=== PATIENT | male | born 1980 | race Caucasian/White ===

== ENCOUNTER 2024-09-19 09:20 | Emergency (ER) | payer BC, SELFPAY ==
[2024-09-19 09:24] VITALS: BP 145/92; PULSE 54; RESP 16; TEMP 35.1; O2SAT 97
[2024-09-19 09:27] VITALS: BP 145/92; PULSE 54; RESP 16; TEMP 35.1; O2SAT 97
--- NOTE | 2024-09-19 09:58 | ED.GENADUL_ITS ---
Discharge Plan Disposition Patient Disposition: Home Discharge Details Clinical Impression: Right inguinal hernia Primary Care Provider: Unknown,Unknown ED Provider: Urban Sanchez Home Meds and New Rx's Prescriptions: No Action No Known Home Meds Discharge Instructions Additional Instructions: You were seen in the emergency department for your right inguinal hernia. As we discussed if you develop any worsening pain any nausea vomiting any skin changes cannot eat or drink or if you have any other concerns please return to the emergency department. Otherwise the general surgery clinic will call you to arrange for follow-up. Referrals: [facility] [Provider Group] HPI General Date/Time Provider Initiated Documentation: 09/19/24 09:58 . HPI Narrative: MDM This is a quite well-appearing afebrile and not tachycardic 44-year-old male with clinical right inguinal hernia. I spoke with Dr. Henning from general surgery who had evaluated the patient. Given the patient arrived to the emergency department we obtained a courtesy CT scan given involvement with general surgery. He had no signs of incarceration or strangulation and no signs of small bowel obstruction. No testicular pain to suggest torsion. He has no rash to his abdomen to suggest zoster. No right lower quadrant tenderness to suggest appendicitis. No diarrhea to suggest diverticulitis. No falls to suggest increased risk for intra-abdominal trauma. Patient has a right inguinal hernia for which he will benefit from outpatient surgical follow-up. I have asked health rn unit manager Razia to place patient on the list for follow-up in the general surgery clinic. Patient and I discussed that he should return to the ED if he developed any nausea, vomiting, skin changes, worsening pain, fevers, or had any other concerns. HPI This is a patient with a history of a previous hernia repair presenting with a new hernia. The patient reports noticing a bulge in his right groin area approximately a week ago. He describes the sensation as if there is a tear that he can feel with his fingers, estimating the size of the tear to be about an inch or an inch and a half. He is able to manually push the bulge back in, but it re-emerges after a brief moment. He has not sought medical attention from his primary care physician for this issue. When he attempted to schedule an appointment this morning, he was advised to visit the ER instead. He recalls engaging in heavy lifting activities such as moving boulders and digging but cannot pinpoint the exact moment when the hernia might have occurred. He also mentions that he needs to support the area when coughing. The patient reports no nausea, vomiting, or burning sensation during urination. His urinary function is normal, and he has not experienced any changes in bowel habits. His last bowel movement was yesterday afternoon. He has no history of surgery in the inguinal GCS 15. Area, but he did undergo a hernia repair surgery in his upper stomach several years ago. The patient smokes 1 pack per day. PAST SURGICAL HISTORY: Hernia repair surgery in the upper stomach several years ago. Exam General: Well-appearing in no acute distress speaking in complete sentences. Head: Normocephalic, atraumatic. Eye: Extraocular eye movements intact. No conjunctival injection. No scleral icterus. Ear, nose, mouth, throat: Grossly normal inspection. Normal voice, handling secretions normally. Neck: Trachea midline. Cardiovascular: Well-perfused distal extremities. Respiratory: Nonlabored respiration. Gastrointestinal: Nondistended abdomen. Soft. Nontender abdomen. Right inguinal hernia. No signs of incarceration. No signs of strangulation. Musculoskeletal: No edema. Moving all 4 extremities spontaneously. Skin: Normal for age and race, grossly normal temperature and turgor. No acute rash. Neurologic: Alert and appropriate, no apparent acute deficits. GCS 15. Psychiatric: Mood and manner are appropriate. Grooming and personal hygiene are appropriate. Related Data Home Medications ?Medication ?Instructions ?Recorded ?Confirmed Unknown [No Known Home Meds] 09/19/24 0 09/19/24 Allergies Allergy/AdvReac Type Severity Reaction Status Date / Time No Known Allergies Allergy Unverified 09/19/24 09:28 General Stated Complaint: Abd Prob BILL: 3 Course Vital Signs Vital signs: Vital Signs Temperature 35.1 C L 09/19/24 09:24 Pulse 54 L 09/19/24 09:24 Respiratory Rate 16 09/19/24 09:24 Blood Pressure 145/92 H 09/19/24 09:24 Pulse Oximetry 97 09/19/24 09:24 Temperature 35.1 C L 09/19/24 09:27 Temperature Source Tympanic 09/19/24 09:27 Pulse 54 L 09/19/24 09:27 Respiratory Rate 16 09/19/24 09:27 Blood Pressure 145/92 H 09/19/24 09:27 Pulse Oximetry 97 09/19/24 09:27 PFSH All Active Problems (Updated 09/19/24 @ 14:03 by Urban Sanchez MD) Smoker (Acute) Right inguinal hernia (Acute) Surgical History (Updated 09/19/24 @ 14:32 by Austin Henning DO) H/O ventral hernia repair Social History Smoking/Tobacco Use Status: Current every day Tobacco Type: cigarettes Smoking risk assessment performed?: Yes Alcohol Intake: current Alcohol Intake frequency: a few times a week Drug use: Daily Substance use type: marijuana Do you feel safe at home: Yes Do you feel safe in your relationship?: Yes PAWSS Have you Been Recently Intoxicated or Drunk Within the Last 30 days?: No Have you Ever Experienced Previous Episodes of Alcohol Withdrawal?: No Have you ever Experienced Withdrawal Seizures?: No Have you ever Experienced Delirium Tremens(DT)s?: No Have you ever undergone Alcohol Rehabilitation Treatment (i.e, inpt ot outpatient treatment programs)?: No Have you ever Experienced Blackouts?: No Have you ever Combined Alcohol with other Downers within the last 90 days?: No Have you ever Combined Alcohol with any other Substance of Abuse during the last 90 days?: No Positive Blood Alcohol level on Presentation? [PCS.BAL]: No Evidence of Increased Autonomic Activity (i.e. HR>120, tremor, sweating, agitation, nausea)?: No Result: 0
--- NOTE | 2024-09-19 10:45 | DI.CT_ITS ---
Exam(s) CT ABDOMEN PELVIS W EXAM: CT ABDOMEN PELVIS W CLINICAL HISTORY: Right inguinal hernia. TECHNIQUE: Imaging Protocol: Axial computed tomography images with coronal and sagittal reformatted images were created and reviewed CONTRAST MATERIAL: Intravenous: Omnipaque-350 75cc Oral: None COMPARISON: No exams were available for comparison FINDINGS: VISUALIZED LUNG BASES: No nodules nor pleural effusions evident. ABDOMEN: There is no ascites. LIVER: There is a small focal hypodensity in the medial aspect of the right hepatic lobe measuring 5 mm. This is probably a benign cyst or hemangioma. Mild hepatic steatosis noted. There are no dilated intrahepatic ducts. GALLBLADDER/BILIARY: No obvious gallbladder pathology. CBD is not dilated. PANCREAS: No evidence of pancreatic mass nor dilatation of the pancreatic duct. SPLEEN: Spleen size upper normal. Splenic and portal veins are patent. ADRENALS: There are no significant adrenal masses. KIDNEYS:No cysts evident. No solid renal masses. No calculi nor hydronephrosis.. ABDOMINAL AORTA: Abdominal aorta is not enlarged. LYMPH NODES:There is no retroperitoneal nor paraaortic adenopathy. ABDOMINAL WALL: No evidence of significant anterior abdominal wall nor inguinal hernia. GI: There is no evidence of bowel obstruction, free air, nor abscess. PELVIS: GI: No evidence of acute appendicitis.No evidence of sigmoid diverticulitis. INGUINAL: There is mild streaking in the right inguinal canal. No abnormal fluid collection. There are no bowel loops within the inguinal canal. LYMPH NODES: There is no intrapelvic nor inguinal adenopathy. REPRODUCTIVE: Age-appropriate URINARY BLADDER: No calculi nor obvious masses evident OSSEOUS: No fractures. No significant osseous lesions. IMPRESSION: 1. There is mild streaking in and around the right inguinal canal. There is no bowel loop nor prominent fat within the inguinal canal and there is no evidence of abscess. RADIATION DOSE DELIVERED: 501.09mGy.cm Total DLP DATA REPOSITORY: All CT scans at this facility are submitted to the National Radiology Data Registry (NRDR) Dose Index Registry (DIR) with the [employer] (ACR). RADIATION OPTIMIZATION: All CT scans at this facility use at least one of these dose optimization techniques: automated exposure control; mA and/or kV adjustment per patient size (includes targeted exams where dose is matched to clinical indication); or iterative reconstruction.
[2024-09-19 10:53] VITALS: BP 132/58; PULSE 48; RESP 18; O2SAT 98
[2024-09-19 11:25] LABS: Abs Immature Grans 0.04 10^3/uL (0.0-0.06); HCT 50.9 % (40.0-50.0); HGB 17.8 g/dL (13.5-17.5); Immature Grans % 0.5 %; MCH 31.6 pg (27.0-33.0); MCHC 35.0 % (32.0-36.0); MCV 90 fL (80-95); MPV 12.6 fL (8.0-11.0); Platelet Count 138 10^3/uL (130-400); RBC 5.63 10^6/uL (4.36-5.78); RDW 12.7 % (11.8-14.1); RDW-SD 42.1 fL; WBC 8.22 10^3/uL (4.4-10.8)
[2024-09-19] MEDS: Omnipaque 350 MG/ML 500 ML BTL-Imaging package 75 ML IJ (11:33)
[2024-09-19] MEDS: Normal Saline - Diluent 50 ML VIAL IJ (11:35)
[2024-09-19 12:25] VITALS: BP 110/80; PULSE 49; RESP 16; O2SAT 97
[2024-09-19 13:12] LABS: Anion Gap 8.0 mmol/L (3-11); BUN 13 mg/dL (7-18); CO2 27.0 mmol/L (21.0-32.0); Calcium 8.9 mg/dL (8.5-10.1); Chloride 105 mmol/L (98-107); Estimated GFR 111.22 (mL/min/1.73m2); Glucose 98 mg/dL (74-106); Potassium 4.1 mmol/L (3.5-5.1); Sodium 140 mmol/L (136-145)
--- NOTE | 2024-09-19 13:28 | W.SURGCON ---
Date of service: 09/19/24 Time of Service: 13:28 Assessment and Plan Assessment and plan (1) Right inguinal hernia: Status: Acute Assessment and plan: 44-year-old male with right groin pain and bulge. CT scan and exam consistent with right inguinal hernia containing fat, likely direct. - Discussed anatomy and physiology of hernia and inguinal canal - Discussed hernia belt for symptom management - Discussed role of repetitive strain causing initial hernia and risk for recurrent hernia after surgical repair. - Briefly discussed surgical repair options - No urgent surgical issues. Patient can discharge and follow-up in clinic - Return precautions discussed All discussions occurred with patient's significant other present (2) Smoker: Status: Acute Assessment and plan: Regular smoker with chronic cough - reviewed how repetitive strain could put patient at risk for recurrent hernia - Reviewed health risks associated with smoking - Encouraged smoking cessation History of Present Illness History of Present Illness Chief Complaint: Right groin pain and bulge Narrative: 44-year-old male presented to PCP with complaint of 1 week of right groin pain and bulge, sent to ED for further evaluation. Patient works in construction doing heavy lifting but did not notice the pain or bulge after a particular incident. States pain and bulge are worse with lifting, improved with pressure to the area. Has a chronic cough secondary to smoking. Denies straining for urination or defecation. No change in bowel or bladder habits since onset of pain. Pain does not radiate. Denies chest pain, shortness of breath, fevers, chills. Review of Systems Constitutional Constitutional: Denies chills, Denies fatigue, Denies fever(s) and Denies weakness Cardiovascular Cardiovascular: Denies chest pain, Denies chest pain at rest, Denies chest pain with activity and Denies dyspnea Respiratory Respiratory: Reports cough, Denies hemoptysis, Denies pain with cough and Denies dyspnea Gastrointestinal Gastrointestinal: Reports abdominal pain ( right groin), Denies change in bowel habits and Denies constipation Genitourinary Genitourinary: Denies difficulty urinating Musculoskeletal Musculoskeletal: Denies arthralgias, Denies joint swelling, Denies muscle weakness, Denies stiffness and Denies tingling Neurologic Neurologic: Denies confusion, Denies sensory deficit, Denies tingling, Denies paresthesias and Denies weakness Psychiatric Psychiatric: Denies confusion Endocrine Endocrine: Denies fatigue PFSH All Active Problems Smoker (Acute) Right inguinal hernia (Acute) Surgical History H/O ventral hernia repair Social History Smoking/Tobacco Use Status: Current every day Tobacco Type: cigarettes Smoking risk assessment performed?: Yes Alcohol Intake: current Alcohol Intake frequency: a few times a week Drug use: Daily Substance use type: marijuana Do you feel safe at home: Yes Do you feel safe in your relationship?: Yes Exam Const General: cooperative, healthy appearing, comfortable, no acute distress and well developed Resp Effort & Inspection: normal respiratory effort and cough Cardio Rate: bradycardic GI Inspection: normal to inspection, scar (epigastric/upper midline, well healed) and visible herniation (right groin bulge) Palpation: soft, no guarding, hernia direct inguinal on the right; not on the left; no umbilical and no ventral and tender (right groin hernia) Male General Exam: Yes normal external exam and No tenderness Penis: normal penis (uncircumscribed) Scrotum: scrotum normal Testes: normal Skin General skin exam: no rashes or lesions noted and turgor normal Neuro General: patient alert, patient awake and patient oriented x3 Cognition: normal cognition Speech: speech normal Gait: normal gait Results Last Vital Signs Temp 35.1 C L 09/19/24 09:27 Pulse 49 L 09/19/24 12:25 Resp 16 09/19/24 12:25 BP 110/80 09/19/24 12:25 Pulse Ox 97 09/19/24 12:25 Labs 09/19/24 10:16 09/19/24 12:46 Labs: Laboratory Results - last 24 hr 09/19/24 09/19/24 10:16 12:46 WBC 8.22 RBC 5.63 Hgb 17.8 H Hct 50.9 H MCV 90 MCH 31.6 MCHC 35.0 RDW 12.7 Plt Count 138 MPV 12.6 H Immature Gran % 0.5 Neutrophils % 68.7 Lymphocytes % 22.9 Monocytes % 6.3 Eosinophils % 1.0 Basophils % 0.6 Nucleated RBC % 0.0 Absolute Neutrophils 5.65 Absolute Lymphocytes 1.88 Absolute Monocytes 0.52 Absolute Eosinophils 0.08 Absolute Basophils 0.05 Sodium Cancelled 140 Potassium Cancelled 4.1 Chloride Cancelled 105 Carbon Dioxide Cancelled 27.0 Anion Gap Cancelled 8.0 BUN Cancelled 13 Creatinine Cancelled 0.8 Est GFR (CKD-EPI 2020) Cancelled 111.22 Glucose Cancelled 98 Calcium Cancelled 8.[address] scan report/results: report reviewed and image reviewed (not done with valsalva but fat seen tracking along cord structures on the right)
[2024-09-19 14:38] VITALS: BP 116/88; PULSE 48; RESP 16; O2SAT 99
== END 2024-09-19 14:39 | disposition home or self-care (01) ==
PROVIDERS: Emergency Provider Emergency Medicine
DX: K40.90 Unilateral inguinal hernia, without obstruction or gangrene, not specified as recurrent (principal); F17.210 Nicotine dependence, cigarettes, uncomplicated
CPT/HCPCS: 36415; 80048; 99285; 74177; 85025

== ENCOUNTER 2024-10-14 06:59 | Day surgery (SDC) | payer BC, SELFPAY ==
[2024-10-14] VITALS (21 sets, daily range): BP systolic 106–121; BP diastolic 57–88; PULSE 55–80; RESP 10–16; TEMP 35.8–36.4; O2SAT 91–98; BMI 26.3
--- NOTE | 2024-10-14 07:03 | ANES.PREOP_ITS ---
General Info Date of Service Date Performed: 10/14/24 Height: 5 ft 11 in Weight: 85.729 kg Body Mass Index (BMI): 26.3 Surgical Procedure: Operation Date: 10/14/24 08:25 Proposed Procedure Side Surgeon p Hernia Inguinal Laparoscopic Right Emily Bhatia MD Meds Allergies and Home Medications Allergies Allergy/AdvReac Type Severity Reaction Status Date / Time venom-honey bee Allergy Anaphylaxis Verified 10/14/24 07:14 Home Medication ?Medication ?Instructions ?Recorded Unknown [No Known Home Meds] 09/19/24 Current Visit Medications: Current Medications Generic Name Dose Route Start Last Admin Trade Name Freq PRN Reason Stop Dose Admin Ringer's Solution 1,000 mls @ 80 mls/hr 10/14/24 06:00 IV 10/14/24 23:59 INFUSION MONTRELL Cefazolin Sodium/Dextrose 2 gm in 50 mls @ 100 mls/hr 10/14/24 06:00 Ancef Duplex IVPB 10/14/24 23:59 PREOP MONTRELL IV Miscellaneous Supplies 1 each 10/14/24 06:00 Iv Access IV 10/14/24 23:59 DIRECTED MONTRELL Sodium Chloride 0 ml 10/14/24 06:00 Normal Saline Flush 10 Ml Syr IV 10/14/24 23:59 PRN PRN Sodium Chloride 0 ml 10/14/24 06:00 Normal Saline 10 Ml Vial IJ 10/14/24 23:59 DIRECTED PRN Sterile Water 0 ml 10/14/24 06:00 Water,Injection,Sterile 10 Ml Vial IJ 10/14/24 23:59 DIRECTED PRN PFSH Active Problems Active Problems: Problem Status Onset Code Smoker Acute F17.200 Right inguinal hernia Acute K40.90 Surgical History Surgical History H/O ventral hernia repair Tobacco Smoking/Tobacco Use Status: Current every day Tobacco Type: cigarettes Passive smoking exposure: Yes Alcohol Alcohol Intake: current Alcohol intake frequency: a few times a week Substance Use Substance use: Daily Substance use type: marijuana Vital Signs and Lab Results Lab Results Complete Blood Count: WBC, (4.4-10.8) 8.22 10^3/uL 09/19/24, 10:16 RBC, (4.36-5.78) 5.63 10^6/uL 09/19/24, 10:16 Hgb, (13.5-17.5) 17.8 g/dL H 09/19/24, 10:16 Hct, (40.0-50.0) 50.9 % H 09/19/24, 10:16 Plt Count, (130-400) 138 10^3/uL 09/19/24, 10:16 Complete Metabolic Panel: Sodium, (136-145) 140 mmol/L 09/19/24, 12:46 Potassium, (3.5-5.1) 4.1 mmol/L 09/19/24, 12:46 Chloride, (98-107) 105 mmol/L 09/19/24, 12:46 Carbon Dioxide, (21.0-32.0) 27.0 mmol/L 09/19/24, 12 :46 BUN, (7-18) 13 mg/dL 09/19/24, 12:46 Creatinine, (0.70-1.30) 0.8 mg/dL 09/19/24, 12:46 Est GFR (CKD-EPI 2020), (mL/min/1.73m2) 111.22 09/19/24, 12:46 Calcium, (8.5-10.1) 8.9 mg/dL 09/19/24, 12:46 Glucose, (74-106) 98 mg/dL 09/19/24, 12:46 Anesthesia Assessment and Plan Anesthesia History Personal History: No History of Anesthesia Complications Family History: No Family History of Anesthesia Complications Exercise Tolerance Exercise Tolerance: Metabolic Equivalents>4 Pertinent Negatives Pertinent Negatives: No Symptoms of GERD, No Major Cardiovascular Symptoms or Complaints and No Major Pulmonary Symptoms or Complaints Cardiac & Pulmonary Exam Cardiac Exam: Normal S1/S2 Heart Sounds Pulmonary Exam: Clear Bilateral Breath Sounds Implantable Cardiac Device Does patient have a Pacemaker or an ICD?: No Airway Exam Known Difficult Airway: No Mallampati Class: 2 Mouth Opening: Normal (> 3cm) Thyromental Distance: Greater than 3 cm Neck Range of Motion: Full ROM Neck Circumference: Normal Teeth Condition: Normal Dentition ASA Classification ASA Score: ASA 2 Emergency Case?: No NPO Status NPO Status: NPO Clears >2 hours, Solids >8 hours Anesthesia Plan Resuscitation Status: Full Code Anesthesia Technique: General Anesthesia Airway Planned: Natural Airway Monitors Used: Standard Monitors
[2024-10-14] MEDS: Lactated Ringers 1,000 ML 80 ML IV (07:45)
[2024-10-14] MEDS: ceFAZolin 2 GM/50 ML BAG IVPB (08:30)
--- NOTE | 2024-10-14 08:55 | W.PM.DSUDISC ---
Date of service: 10/14/24 Discharge Plan Disposition Patient Disposition: Home Condition: Stable Discharge Details Attending Provider: Emily Bhatia Primary Care Provider: Unknown,Unknown Recommendations for Follow Up Recommended tests to be ordered by follow up provider: None Home Meds and New Rx's Prescriptions: New hydrocodone-acetaminophen 5-325 mg tablet 1 tab PO Q6H PRN (Reason: pain) Qty: 15 0RF Discharge Instructions Instructions: Groin Hernia Repair, Laparoscopic Surgery Additional Instructions: Shower in 48 hours. Wash gently over skin glue with soapy hands, rinse, pat dry. Don't peel glue or submerge incisions under water. Ok to walk, climb stairs, and resume normal activities of daily living. Do not lift/push/pull more than 20lb for 4 weeks. Swelling in scrotum and groin is normal/expected. elevate the scrotum/groin and apply cool packs or covered ice pack to reduce swelling. Diet as tolerated. Monitor for constipation while in recovery. Start a stool softener or laxative if no BM within 36 hours. Call or return for fever or incisional problems. Activity:: as above Shower/Bathe:: 24 hours Diet:: As Tolerated Discharge Orders Discharge Orders: Discharge Order (Routine); Ordered 10/14/24 Ordered By: Emily Bhatia DS: Diagnosis Discharge Diagnosis (1) Right inguinal hernia: Status: Acute
[2024-10-14] MEDS: Bupivacaine 0.25% Pres-Free W/EPI 30 ML VIAL (09:47)
--- NOTE | 2024-10-14 10:20 | W.PM.OP ---
Operative Note Operative Note PRE-OP DIAGNOSIS: Right inguinal hernia Right inguinal hernia PROCEDURE: Laparoscopic right inguinal hernia repair with mesh APPLICATIONS SUPPORT ENGINEER: Alicia Buenrostro ANESTHESIA TYPE: Local By Surgeon Refer to Anesthesia Record ESTIMATED BLOOD LOSS: 30 PATHOLOGY: none sent COMPLICATIONS: None Implants: Large size Bard 3D Max mesh Procedure Description: This is a 44yo M with a right inguinal hernia that is symptomatic. He was seen in the office and scheduled for laparoscopic repair. On the day of surgery informed consent was confirmed after discussion of the procedure risks, benefits, alternatives, and expectations. The patient asked good questions and verbalized understanding of the plan. He was taken to the operating room The operating room he was placed supine on the operating table. SCDs were placed and all pressure points were padded appropriately general anesthesia was induced the abdomen was clipped prepped and draped in the usual sterile fashion. Timeout was performed. Local anesthetic was infiltrated into the skin and subcutaneous tissues at each port access site. A midline vertical incision was made below the umbilicus and the subcutaneous tissue was dissected down to the level of the fascia using cautery. The fascia was retracted to the right of the midline. The anterior rectus sheath was opened sharply and muscle-splitting technique was used to retract the muscle fibers over the peritoneum. A peon clamp was used to access the preperitoneal space down to the pubic bone. A Spacemaker balloon was inserted and directed at the pubic bone. Spacemaker balloon was inflated and deflated and the port advanced into the preperitoneal space. Insufflation to 15 mmHg was accomplished with carbon dioxide gas. Laparoscopy revealed no injury to the underlying structures. The preperitoneal space was well-developed with the balloon dissector. Two 5 mm ports were placed in the midline under direct visualization. The pubic bone was cleared. The lateral wall was cleared. The hernia sac was noted high along the cord structures as an indirect inguinal hernia. The sac was dissected bluntly from the cord structures. There was a lot of dense scarring between the sac and the cord structures indicating chronicity. Once the sac was dissected free it was confirmed to be low and posterior in the preperitoneal space. A large sized 3D max light mesh was selected for the repair. The mesh was introduced to the preperitoneal space and positioned over the direct and indirect spaces. It was tacked to the iliopubic tract at 3 points. There was adequate coverage of the direct and indirect space. There was no evidence of obturator or femoral hernia from this view. The preperitoneal space was desufflated under direct visualization and the mesh lay flat at the repair site. The anterior rectus sheath was reapproximated with an 0 Vicryl [id number] stitch. The skin at each port site was closed with simple interrupted subcuticular 4-0 Monocryl. The skin was washed and dried and Dermabond was applied to the incisions. All sponge and instrument counts were correct at the end the case. The patient tolerated the procedure well. He extubated in the operating room and transferred to the recovery room in stable condition. There were no complications. Date of Procedure: 10/14/24
--- NOTE | 2024-10-14 12:36 | W.ANESPOSTOP ---
Postoperative Evaluation Date, Time and Location Date Performed: 10/14/24 Time Performed: 11:05 Patient Location: PACU Vital Signs Most Recent Imported Vital Signs: Most Recent Vital Signs Temp Pulse Resp BP Pulse Ox 36.4 C L 58 L 16 118/82 93 10/14/24 11:53 10/14/24 11:53 10/14/24 11:53 10/14/24 11:53 10/14/24 11:53 Pain Score Most Recent Pain Score: Most Recent Pain Score Pain Level 3 10/14/24 11:53 Assessment Mental Status: Awake (Alert & Oriented to Patient Baseline) Airway and Respiratory Function: Patent airway with normal (patient baseline) respiratory exam Cardiovascular Function: Hemodynamically Stable Hydration Status: Adequately Hydrated Nausea & Vomiting: No Nausea or Vomiting Pain: Pt. Denies Any Pain Peripheral Nerve Block: Patient did not receive a nerve block
== END 2024-10-14 12:17 | disposition home or self-care (01) ==
PROVIDERS: Visit Provider Surgery
PROC: (CPT 49650; principal; 2024-10-14 08:15)
DX: K40.90 Unilateral inguinal hernia, without obstruction or gangrene, not specified as recurrent (principal)
CPT/HCPCS: 49650; C1781; J0131; J0690; J1100; J1171; J2003; J2250; J2405; J2704; J3010; J3475